=== PATIENT | female | born 1995 | race Two or more races ===

== ENCOUNTER 2024-11-30 15:10 | Outpatient (CLI) | payer OTHER ==
[2024-11-30 16:37] LABS: Hepatitis B Surface Antigen Negative (Negative)
== END 2024-11-30 17:00 | disposition home or self-care (01) ==
LOC: LAB 15:10
PROVIDERS: ATTEND Family Medicine
DX: Z20.5 Contact with and (suspected) exposure to viral hepatitis (principal); Z77.21 Contact with and (suspected) exposure to potentially hazardous body fluids
CPT/HCPCS: 36415; 86703; 86706; 86803; 87340